=== PATIENT | male | born 1940 | race Caucasian/White ===

== ENCOUNTER → 2017-03-08 | Outpatient (CLI) | payer MEDICARE, OTHER ==
[2017-03-08 08:37] LABS: CHLORIDE,CL 107 mmol/L (98-110); SODIUM,NA 141 mmol/L (136-146)
== END ==
LOC: MW.CHRC 07:49
PROVIDERS: ATTEND Family Medicine
DX: I10 Essential (primary) hypertension (principal); E78.00 Pure hypercholesterolemia, unspecified; E11.9 Type 2 diabetes mellitus without complications; I25.10 Atherosclerotic heart disease of native coronary artery without angina pectoris
CPT/HCPCS: 36415; 80053; 80061; 82044; 83036; 99215

== ENCOUNTER 2017-10-20 17:15 | Emergency (ER) | payer MEDICARE, OTHER ==
[2017-10-20] MEDS ORDERED: Diltiazem 25 MG/5 ML SDV IVPUSH ONE (17:22)
[2017-10-20] MEDS ORDERED: Famotidine 20 MG/2 ML SDV IVPUSH ONE (17:23)
[2017-10-20] MEDS ORDERED: Sodium Chloride 0.9% 1,000 ML IV ONE ×2 (17:26→18:38)
--- NOTE | 2017-10-20 17:35 | EDM.PDOC ---
ED HPI GENERAL MEDICAL PROBLEM - General Chief Complaint: Cardiovascular Problem Stated Complaint: PT HAS DIFFICULTY BREATHING Time Seen by Provider: 10/20/17 17:17 Source of Information: Reports: Patient, EMS, Old Records History Limitations: Reports: No Limitations - History of Present Illness INITIAL COMMENTS - FREE TEXT/NARRATIVE: HISTORY AND PHYSICAL: []77-year-old male presenting with chest pain per EMS History of Present Illness: []12:00 noon patient started having difficulty with some shortness of breath with chest pain 05/30 This did not resolve he called EMS right leg below the knee amputation Hypertension Review of Systems: As per history of present illness and below otherwise all systems reviewed and negative. Past medical history: As per history of present illness and as reviewed below otherwise noncontributory. Surgical history: As per history of present illness and as reviewed below otherwise noncontributory. Social history: No reported history of drug or alcohol abuse. Family history: As per history of present illness and as reviewed below otherwise noncontributory. Physical exam: Alert and oriented male, who states his pain as a 1 out of 10. he was given one nitroglycerin sublingual by EMS. Speaking in full sentences without any shortness of breath. Patient did take all of his medications this morning including aspirin. HEENT: Atraumatic, normocehpalic, pupils reactive, negative for conjunctival pallor or scleral icterus, mucous membranes moist, throat clear, neck supple, nontender, trachea midline. Lungs: Clear to auscultation, breath sounds equal bilaterally, chest non tender. Heart: S1S2, regular, negative for clicks, rubs, or JVD. Abdomen: Soft, nondistended, nontender. Negative for masses or hepatossplenmegaly. Negative for costovertebral tenderness. Pelvis: Stable nontender. Genitourinary: Deferred. Rectal: Deferred Extremities: Atraumatic, negative for cords or calf pain. Neurovascular unremarkable. Neuro: Awake, alert, oriented. Cranial nerves II through XII unremarkable. Cerebellum unremarkable. Motor and sensory unremarkable throughout. Exam nonfocal. 20mg Cardizem IV and rate has slowed is now variable at 70's to 100s Patient remains pain free Troponin level has returned elevated at 1.16 Discussed this case with Dr. Haq physician in [facility] he has requested Lovenox to be given prior to transport and he has accepted this patient for admission to ER in [place], Discussed with the patient that his enzymes are elevated we will transfer him per air to a hospital that has cardiology available and he is agreeable to this recommended course of action. Diagnostics: [CBC CMP troponin EKG chest x-ray] Therapeutics: [1 L normal saline Cardizem 20 IV] Impression: [New-onset A. fib] Plan: []Transfer patient per air ambulance to [facility] emergency department [place], [place] All forms have been completed Definitive disposition and diagnosis as appropriate pending reevaluation and review of above. Onset: Today, Sudden Duration: Hour(s): (4-5) Location: Reports: Chest Severity: Moderate - Related Data Allergies Allergy/AdvReac Type Severity Reaction Status Date / Time Penicillins Allergy Cannot Verified 05/06/14 08:07 Remember zolpidem tartrate Allergy Cannot Verified 05/06/14 08:07 [From Riya] Remember Past Medical History Cardiovascular History: Reports: High Cholesterol, Hypertension Respiratory History: Reports: COPD Endocrine/Metabolic History: Reports: Diabetes, Type II - Past Surgical History GI Surgical History: Reports: Hernia Repair/Other Social & Family History - Family History Family Medical History: Noncontributory - Tobacco Use Smoking Status *Q: Former Smoker Used Tobacco, but Quit: Yes Month Tobacco Last Used: 12+ - Caffeine Use Caffeine Use: Reports: Coffee - Recreational Drug Use Recreational Drug Use: No ED ROS GENERAL - Review of Systems Review Of Systems: ROS reveals no pertinent complaints other than HPI. ED EXAM, GENERAL - Physical Exam Exam: See Below (See dictation) EKG INTERPRETATION Rhythm: A-Fib (New-onset) Comparison: NA - No Prior EKG Course - Vital Signs Last Recorded V/S: Last Vital Signs Temp 36.2 C 10/20/17 17:17 Pulse 149 H 10/20/17 17:17 Resp 28 H 10/20/17 17:17 BP 118/84 10/20/17 17:17 Pulse Ox 91 L 10/20/17 17:17 - Orders/Labs/Meds Orders: Active Orders 24 hr Category Date Time Status Cardiac Monitoring [RC] . DIRECTED Care 10/20/17 17:22 Active Cardiac Monitoring [RC] . DIRECTED Care 10/20/17 17:23 Active EKG Documentation Completion [RC] STAT Care 10/20/17 17:22 Active EKG Documentation Completion [RC] STAT Care 10/20/17 17:51 Active Oxygen Therapy, ED [RC] ASDIRECTED Care 10/20/17 17:22 Active Chest 1V Frontal [CR] Stat Exams 10/20/17 17:23 Taken AMYLASE [CHEM] Stat Lab 10/20/17 18:06 Results COMPREHENSIVE METABOLIC PN,CMP [CHEM] Stat Lab 10/20/17 18:06 Results LIPASE [CHEM] Stat Lab 10/20/17 18:06 Results TROPONIN I [CHEM] Stat Lab 10/20/17 18:06 Results UA W/MICROSCOPIC [URIN] Stat Lab 10/20/17 17:23 Uncollected Sodium Chloride 0.9% [Normal Saline] 1,000 ml Med 10/20/17 17:26 Active IV STAT Medication Orders Sodium Chloride (Normal Saline) 1,000 mls @ 999 mls/hr IV STAT ONE Stop: 10/20/17 18:26 Last Admin: 10/20/17 17:29 Dose: 999 mls/hr Labs: Laboratory Tests 10/20/17 10/20/17 10/20/17 Range/Units 18:06 18:06 18:06 WBC 7.70 (4.0-11.0) K/uL RBC 3.88 L (4.50-5.90) M/uL Hgb 11.8 L (13.0-17.0) g/dL Hct 35.3 L (38.0-50.0) % MCV 91.0 (80.0-98.0) fL MCH 30.4 (27.0-32.0) pg MCHC 33.4 (31.0-37.0) g/dL RDW Std Deviation 44.9 (28.0-62.0) fl RDW Coeff of Ese 14 (11.0-15.0) % Plt Count 261 (150-400) K/uL MPV 10.50 (7.40-12.00) fL Neut % (Auto) 81.4 H (48.0-80.0) % Lymph % (Auto) 12.9 L (16.0-40.0) % [place] % (Auto) 5.7 (0.0-15.0) % Eos % (Auto) 0.0 (0.0-7.0) % Baso % (Auto) 0.0 (0.0-1.5) % Neut # (Auto) 6.3 H (1.4-5.7) K/uL Lymph # (Auto) 1.0 (0.6-2.4) K/uL [place] # (Auto) 0.4 (0.0-0.8) K/uL Eos # (Auto) 0.0 (0.0-0.7) K/uL Baso # (Auto) 0.0 (0.0-0.1) K/uL Nucleated RBC % 0.0 /100WBC Nucleated RBCs # 0 K/uL INR 1.16 H (0.86-1.11) Troponin I 1.67 H* (0.0-0.29) NG/ML Meds: Medications Generic Name Dose Route Start Last Admin Trade Name Freq PRN Reason Stop Dose Admin Sodium Chloride 1,000 mls @ 999 mls/hr 10/20/17 17:26 10/20/17 17:29 Normal Saline IV 10/20/17 18:26 999 mls/hr STAT ONE Administration Discontinued Medications Generic Name Dose Route Start Last Admin Trade Name Freq PRN Reason Stop Dose Admin Diltiazem HCl 20 mg 10/20/17 17:22 10/20/17 17:28 Diltiazem IVPUSH 10/20/17 17:23 20 mg ONETIME ONE Administration Famotidine 20 mg 10/20/17 17:23 10/20/17 17:42 Pepcid IVPUSH 10/20/17 17:24 20 mg ONETIME ONE Administration Departure - Departure Time of Disposition: 18:44 Disposition: DC/Tfer to Acute Hospital 02 Reason for Transfer *Q: Primary PCI Indicated Condition: Good Clinical Impression: New onset a-fib, Elevated troponin Forms: ED Department Discharge - My Orders Last 24 Hours: My Active Orders 10/20/17 17:22 Cardiac Monitoring [RC] . DIRECTED EKG Documentation Completion [RC] STAT Oxygen Therapy, ED [RC] ASDIRECTED 10/20/17 17:23 Cardiac Monitoring [RC] . DIRECTED Chest 1V Frontal [CR] Stat UA W/MICROSCOPIC [URIN] Stat 10/20/17 17:26 Sodium Chloride 0.9% [Normal Saline] 1,000 ml IV STAT 10/20/17 17:51 EKG Documentation Completion [RC] STAT 10/20/17 18:06 AMYLASE [CHEM] Stat COMPREHENSIVE METABOLIC PN,CMP [CHEM] Stat LIPASE [CHEM] Stat TROPONIN I [CHEM] Stat - Assessment/Plan Last 24 Hours: My Active Orders 10/20/17 17:22 Cardiac Monitoring [RC] . DIRECTED EKG Documentation Completion [RC] STAT Oxygen Therapy, ED [RC] ASDIRECTED 10/20/17 17:23 Cardiac Monitoring [RC] . DIRECTED Chest 1V Frontal [CR] Stat UA W/MICROSCOPIC [URIN] Stat 10/20/17 17:26 Sodium Chloride 0.9% [Normal Saline] 1,000 ml IV STAT 10/20/17 17:51 EKG Documentation Completion [RC] STAT 10/20/17 18:06 AMYLASE [CHEM] Stat COMPREHENSIVE METABOLIC PN,CMP [CHEM] Stat LIPASE [CHEM] Stat TROPONIN I [CHEM] Stat
[2017-10-20 18:33] LABS: CHLORIDE,CL 110 mmol/L (98-110); SODIUM,NA 137 mmol/L (136-146)
[2017-10-20] MEDS ORDERED: Enoxaparin 100 MG/1 ML Syringe SUBCUT ONE (18:40)
--- NOTE | 2017-10-21 15:41 | CR ---
EXAM DATE: 10/20/17 PATIENT'S AGE: 77 Patient: [facility] Facility: [place], [place] Site . Site : [id number] Study: XRay Chest [id number] 6:07:38 PM Ordering Physician: Doctor Morocho Final Report: Indication: Chest pain Technique: Chest 1 view Comparison: None Findings/Impression: Cardiovascular and mediastinum: Mild cardiomegaly. Lungs and pleural space: Diffusely increased interstitial markings with apparent ill-defined interstitial nodularity in the lower lungs, which could represent interstitial pulmonary edema or an infectious process, although neoplasm/metastatic disease is not excluded. Correlate with CT. An ill-defined retrocardiac opacity could represent atelectasis or a focal infiltrate. Slight blunting of the costophrenic angles. Bones and soft tissues: No significant abnormalities. Dictated by Tejinder Pepper MD @ 10/20/2017 6:29:23 PM Dictated by: Tejinder Pepper MD @ 10/20/2017 18:31:41 (Electronic Signature) Report Signed by Proxy. [facility]
== END 2017-10-20 19:01 ==
LOC: MW.ED 17:15
DX: I48.91 Unspecified atrial fibrillation (principal); R79.89 Other specified abnormal findings of blood chemistry; I10 Essential (primary) hypertension; E78.00 Pure hypercholesterolemia, unspecified; E11.9 Type 2 diabetes mellitus without complications; Z87.891 Personal history of nicotine dependence; Z88.0 Allergy status to penicillin; Z88.8 Allergy status to other drugs, medicaments and biological substances
CPT/HCPCS: 36415; 71010; 80053; 82150; 83690; 84484; 85025; 85610; 93005; 96361; 96372; 96374; 96375; 99285; J1650; J3490; J7040; 99283

== ENCOUNTER 2019-12-14 08:37 | Emergency (ER) | payer MEDICARE, OTHER ==
[2019-12-14] MEDS ORDERED: LORazepam 2 MG/ML SDV IVPUSH ONE (08:42)
[2019-12-14] MEDS ORDERED: Magnesium Sulfate/Water 2 GM in Premix Bag 1 BAG IV ONE (08:43)
[2019-12-14 09:29] LABS: CARBON DIOXIDE,CO2 14.6 mmol/L (21.0-32.0); POTASSIUM,K 5.8 mmol/L (3.5-5.1)
--- NOTE | 2019-12-14 09:32 | CR ---
Chest: Portable view of the chest was obtained. Comparison: Prior chest x-ray of 10/20/17. Heart size appears at the upper limits of normal. Lungs show no acute parenchymal change. Old healed left clavicle deformity is noted. No acute osseous finding is seen. Impression: 1. Findings as noted above. 2. Nothing acute is appreciated. Diagnostic code #2 This report was dictated in [place] Standard Time
--- NOTE | 2019-12-14 09:51 | US ---
Left lower extremity deep venous ultrasound: Duplex and color Doppler evaluation was obtained of the left common femoral, superficial femoral, popliteal, posterior tibial and peroneal veins. Comparison: No prior venous imaging. Findings: Normal Doppler blood flow and compression is seen. Impression: 1. No evidence of deep venous thrombosis within the left lower extremity. Diagnostic code #1 This report was dictated in [place] Standard Time
--- NOTE | 2019-12-14 11:06 | EDM.PDOC ---
ED HPI GENERAL MEDICAL PROBLEM - General Chief Complaint: Lower Extremity Injury/Pain Stated Complaint: LEG PAIN Time Seen by Provider: 12/14/19 08:39 - History of Present Illness INITIAL COMMENTS - FREE TEXT/NARRATIVE: Severe left leg cramping since last night history of claudication poor circulation normally resolve spontaneously this time did not after 1 hour patient called EMS because of pain and severe spasm that is intermittent. Denies any numbness or weakness. Patient denies any chest pain or any respiratory distress. History of congestive heart failure COPD and renal insufficiency as well as diabetes. Patient admits to poor baseline circulation to left leg and history of claudication to left leg. He normally takes medication for spasm however today it did not work.. Denies loss of strength or loss of sensation Left lower leg Pain Score (Numeric/FACES): 4 - Related Data Allergies Allergy/AdvReac Type Severity Reaction Status Date / Time Penicillins Allergy Cannot Verified 12/14/19 09:02 Remember zolpidem tartrate Allergy Cannot Verified 12/14/19 09:02 [From Riya] Remember Home Meds: Home Meds Acetaminophen 325 - 650 mg PO Q4HR PRN 07/27/18 [History] Albuterol Sulfate [Proair Hfa] 1 - 2 puff IH Q4HR PRN 07/27/18 [History] Aspirin 81 mg PO DAILY 07/27/18 [History] Capsaicin [Capzasin-P 0.0375% Crm] 42.5 gm .XX DAILY 07/27/18 [History] Clopidogrel [Plavix] 75 mg PO DAILY 07/27/18 [History] Fish Oil/DHA/EPA [Fish Oil 1,200 MG] 1 tab PO DAILY 07/27/18 [History] Fluticasone/Salmeterol [Advair 250-50 Diskus] 1 each IH DAILY 07/27/18 [History] Insulin Aspart Protam & Aspart [Novolog Mix 70-30 Flexpen Syrn] 35 units SQ BID 07/27/18 [History] Lisinopril/Hydrochlorothiazide [Lisinopril-Hctz 20-12.5 mg Tab] 1 tab PO DAILY 07/27/18 [History] Melatonin 10 mg PO BEDTIME 07/27/18 [History] Metoprolol Tartrate 25 mg PO BID 07/27/18 [History] Nitroglycerin [Nitroglycerin Patch 0.2 MG/Hr] 5 mg TRDERM DAILY 07/27/18 [ History] Nitroglycerin [Nitrostat] 0.4 mg SL .EVERY 5 MINUTES PRN MDD 3 tablets (1.2 mg) 07/27/18 [History] Pantoprazole Sodium 40 mg PO DAILY 07/27/18 [History] Sertraline HCl 50 mg PO DAILY 07/27/18 [History] Vitamin B Complex [B Complex] 1 each PO DAILY 07/27/18 [History] Warfarin [Coumadin] 5 mg PO SUMOWEFRSA 07/27/18 [History] Warfarin [Coumadin] 7.5 mg PO TUTH 07/27/18 [History] atorvaSTATin [Lipitor] 40 mg PO BEDTIME 07/27/18 [History] diphenhydrAMINE [Benadryl] 25 - 50 mg PO BEDTIME 07/27/18 [History] metFORMIN HCl [Fortamet] 1,000 mg PO BID 07/27/18 [History] Metoprolol Tartrate [Lopressor] 25 mg PO BIDMEALS 30 Days #60 tablet 07/28/18 [ Rx] Sertraline [Zoloft] 50 mg PO DAILY 30 Days #45 tablet 07/28/18 [Rx] Past Medical History HEENT History: Reports: Cataract, Hard of Hearing Cardiovascular History: Reports: High Cholesterol, Hypertension Respiratory History: Reports: COPD Gastrointestinal History: Reports: None Genitourinary History: Reports: None Musculoskeletal History: Reports: Amputation 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 Neurological History: Reports: None Psychiatric History: Reports: Anxiety Endocrine/Metabolic History: Reports: Diabetes, Type II Hematologic History: Reports: None Immunologic History: Reports: None Oncologic (Cancer) History: Reports: None Dermatologic History: Reports: None - Infectious Disease History Infectious Disease History: Reports: Mumps - Past Surgical History Head Surgeries/Procedures: Reports: None HEENT Surgical History: Reports: Cataract Surgery Cardiovascular Surgical History: Reports: None Respiratory Surgical History: Reports: None GI Surgical History: Reports: Hernia Repair/Other Male Surgical History: Reports: None Endocrine Surgical History: Reports: None Neurological Surgical History: Reports: None Musculoskeletal Surgical History: Reports: Amputation Oncologic Surgical History: Reports: None Dermatological Surgical History: Reports: None Social & Family History - Family History Family Medical History: Noncontributory - Tobacco Use Smoking Status *Q: Never Smoker Second Hand Smoke Exposure: No - Caffeine Use Caffeine Use: Reports: None Caffeine Use Comment: Diet Pepsi - Recreational Drug Use Recreational Drug Use: No Review of Systems - Review of Systems Review Of Systems: See Below Constitutional: Reports: No Symptoms Eyes: Reports: No Symptoms Ears: Reports: No Symptoms Respiratory: Reports: No Symptoms Cardiovascular: Reports: No Symptoms GI/Abdominal: Reports: No Symptoms Musculoskeletal: Reports: Leg Pain Neurological: Reports: No Symptoms Psychiatric: Reports: No Symptoms ED EXAM, GENERAL - Physical Exam Exam: See Below Exam Limited By: No Limitations General Appearance: Moderate Distress Eye Exam: Bilateral Eye: Normal Inspection, PERRL Ears: Normal External Exam, Normal Canal, Hearing Grossly Normal, Normal TMs Nose: Normal Inspection, Normal Mucosa, No Blood Throat/Mouth: Normal Inspection, Normal Lips, Normal Teeth, Normal Gums, Normal Oropharynx, Normal Voice, No Airway Compromise Head: Atraumatic, Normocephalic Neck: Normal Inspection, Supple, Non-Tender, Full Range of Motion Respiratory/Chest: No Respiratory Distress, Lungs Clear, Normal Breath Sounds, No Accessory Muscle Use, Chest Non-Tender Cardiovascular: Normal Peripheral Pulses, Regular Rate, Rhythm, No Edema, No Gallop, No JVD, No Murmur, No Rub GI/Abdominal: Normal Bowel Sounds, Soft, Non-Tender, No Organomegaly, No Distention, No Abnormal Bruit, No Mass Back Exam: Normal Inspection, Full Range of Motion, NT Extremities: Normal Inspection, Normal Range of Motion, Non-Tender, No Pedal Edema, Normal Capillary Refill, Leg Pain, Other (Right-sided above-knee amputation, left leg positive pedal pulse no cyanosis. Average capillary refill sensory intact negative Homans sign). No: Pedal Edema, Alejandor's Sign Neurological: Alert, Oriented, CN II-XII Intact, Normal Cognition, Normal Gait, Normal Reflexes, No Motor/Sensory Deficits Skin Exam: Warm, Dry, Intact, Normal Color, No Rash Course - Vital Signs Last Recorded V/S: Last Vital Signs Temp 96.7 F 12/14/19 09:02 Pulse 116 H 12/14/19 09:02 Resp 18 12/14/19 09:02 BP 149/85 H 12/14/19 09:02 Pulse Ox 97 12/14/19 09:02 - Orders/Labs/Meds Labs: Laboratory Tests 12/14/19 12/14/19 12/14/19 Range/Units 08:41 08:41 08:41 WBC 15.44 H (4.0-11.0) K/uL RBC 3.79 L (4.50-5.90) M/uL Hgb 11.1 L (13.0-17.0) g/dL Hct 33.7 L (38.0-50.0) % MCV 88.9 (80.0-98.0) fL MCH 29.3 (27.0-32.0) pg MCHC 32.9 (31.0-37.0) g/dL RDW Std Deviation 55.0 (28.0-62.0) fl RDW Coeff of Ese 17 H (11.0-15.0) % Plt Count 308 (150-400) K/uL MPV 9.70 (7.40-12.00) fL Neut % (Auto) 82.1 H (48.0-80.0) % Lymph % (Auto) 8.6 L (16.0-40.0) % [place] % (Auto) 8.2 (0.0-15.0) % Eos % (Auto) 0.8 (0.0-7.0) % Baso % (Auto) 0.3 (0.0-1.5) % Neut # (Auto) 12.7 H (1.4-5.7) K/uL Lymph # (Auto) 1.3 (0.6-2.4) K/uL [place] # (Auto) 1.3 H (0.0-0.8) K/uL Eos # (Auto) 0.1 (0.0-0.7) K/uL Baso # (Auto) 0.0 (0.0-0.1) K/uL Nucleated RBC % 0.0 /100WBC Nucleated RBCs # 0 K/uL INR 3.87 Sodium 135 L (136-148) mmol/L Potassium 5.8 H (3.5-5.1) mmol/L Chloride 101 (98-107) mmol/L Carbon Dioxide 14.6 L (21.0-32.0) mmol/L BUN 31 H (7.0-18.0) mg/dL Creatinine 1.7 H (0.8-1.3) mg/dL Est Cr Clr Drug Dosing 36.98 mL/min Estimated GFR (MDRD) 39.2 ml/min Glucose 211 H (74-106) mg/dL Calcium 9.4 (8.5-10.1) mg/dL Total Bilirubin 1.5 H (0.2-1.0) mg/dL AST 74 H (15-37) IU/L ALT 75 H (14-63) IU/L Alkaline Phosphatase 96 (46-116) U/L B-Natriuretic Peptide (<100) PG/ML Total Protein 7.7 (6.4-8.2) g/dL Albumin 3.3 L (3.4-5.0) g/dL Globulin 4.4 H (2.6-4.0) g/dL Albumin/Globulin Ratio 0.8 L (0.9-1.6) 12/14/19 Range/Units 08:41 WBC (4.0-11.0) K/uL RBC (4.50-5.90) M/uL Hgb (13.0-17.0) g/dL Hct (38.0-50.0) % MCV (80.0-98.0) fL MCH (27.0-32.0) pg MCHC (31.0-37.0) g/dL RDW Std Deviation (28.0-62.0) fl RDW Coeff of Ese (11.0-15.0) % Plt Count (150-400) K/uL MPV (7.40-12.00) fL Neut % (Auto) (48.0-80.0) % Lymph % (Auto) (16.0-40.0) % [place] % (Auto) (0.0-15.0) % Eos % (Auto) (0.0-7.0) % Baso % (Auto) (0.0-1.5) % Neut # (Auto) (1.4-5.7) K/uL Lymph # (Auto) (0.6-2.4) K/uL [place] # (Auto) (0.0-0.8) K/uL Eos # (Auto) (0.0-0.7) K/uL Baso # (Auto) (0.0-0.1) K/uL Nucleated RBC % /100WBC Nucleated RBCs # K/uL INR Sodium (136-148) mmol/L Potassium (3.5-5.1) mmol/L Chloride (98-107) mmol/L Carbon Dioxide (21.0-32.0) mmol/L BUN (7.0-18.0) mg/dL Creatinine (0.8-1.3) mg/dL Est Cr Clr Drug Dosing mL/min Estimated GFR (MDRD) ml/min Glucose (74-106) mg/dL Calcium (8.5-10.1) mg/dL Total Bilirubin (0.2-1.0) mg/dL AST (15-37) IU/L ALT (14-63) IU/L Alkaline Phosphatase (46-116) U/L B-Natriuretic Peptide 502 H (<100) PG/ML Total Protein (6.4-8.2) g/dL Albumin (3.4-5.0) g/dL Globulin (2.6-4.0) g/dL Albumin/Globulin Ratio (0.9-1.6) Meds: Medications Discontinued Medications Generic Name Dose Route Start Last Admin Trade Name Freq PRN Reason Stop Dose Admin Magnesium Sulfate 2 gm/ Premix 50 mls @ 50 mls/hr 12/14/19 08:43 12/14/19 09: 06 IV 12/14/19 09:42 50 mls/hr ONETIME ONE Administration Lorazepam 0.5 mg 12/14/19 08:42 12/14/19 08:50 Ativan IVPUSH 12/14/19 08:43 0.5 mg ONETIME ONE Administration Departure - Departure Time of Disposition: 11:05 Disposition: Home, Self-Care 01 Condition: Good Clinical Impression: Leg muscle spasm Qualifiers: Laterality: left Qualified Code(s): M62.838 - Other muscle spasm - Discharge Information Instructions: Muscle Cramps and Spasms, [id number] Referrals: Fernando Brar MD [Primary Care Provider] - Sepsis Event Note - Evaluation Sepsis Screening Result: No Definite Risk - Focused Exam Vital Signs: Vital Signs Temp Pulse Resp BP Pulse Ox 12/14/19 09:02 96.7 F 116 H 18 149/85 H 97 Date Exam was Performed: 12/14/19 Time Exam was Performed: 11:01
== END 2019-12-14 11:48 | disposition home or self-care (01) ==
LOC: MW.ED 08:37
DX: M62.838 Other muscle spasm (principal); I10 Essential (primary) hypertension; E11.9 Type 2 diabetes mellitus without complications; F41.9 Anxiety disorder, unspecified; J44.9 Chronic obstructive pulmonary disease, unspecified; Z88.0 Allergy status to penicillin; Z88.8 Allergy status to other drugs, medicaments and biological substances; Z79.82 Long term (current) use of aspirin; Z79.4 Long term (current) use of insulin; Z79.01 Long term (current) use of anticoagulants; Z79.02 Long term (current) use of antithrombotics/antiplatelets; Z79.899 Other long term (current) drug therapy
CPT/HCPCS: 36415; 71045; 80053; 83880; 85025; 85610; 93971; 96365; 96375; 99284; J2060; J3475; 99283

== ENCOUNTER 2019-12-18 09:38 | Emergency (ER) | payer MEDICARE, OTHER ==
[2019-12-18] MEDS ORDERED: Albuterol/Ipratropium 3.0-0.5 MG/3 ML Neb Soln ONE (09:40)
[2019-12-18] MEDS ORDERED: Albuterol 0.083% 2.5 MG/3 ML Neb Soln NEB ONE (09:49)
[2019-12-18] MEDS ORDERED: methylPREDNISolone Sodium Succinate 125 MG/2 ML SDV IVPUSH ONE (09:49)
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
[2019-12-18] MEDS ORDERED: Levofloxacin/Dextrose 5%-Water 500 MG in Premix Bag 1 BAG IV ONE (09:59)
--- NOTE | 2019-12-18 10:02 | PCM.SN ---
- Free Text/Narrative Note: Called to ER for code blue. On arrival to ED CPR is in progress; agonal respirations are noted. BVM respirations until patient moved from EMS cart to ED cart. Intubation performed without medication; DL with mckenzie 2, grade I view, 8.0 cuffed ETT placed to 25 cm at the lips. +BBS, + EtCO2. Tube secured via RT. CXR and ABG ordered and pending. 18g IV started to Rt EJ due to lack of IV access. 5mL of blood was also obtained for lab studies.
--- NOTE | 2019-12-18 10:15 | CR ---
Chest: Portable view of the chest was obtained. Comparison: Previous chest x-ray of 12/14/19. Monitoring opacity is overlying the right chest obscuring a portion of the right lung. Heart is enlarged. Pulmonary vessels are felt to be mildly congested. Endotracheal tube is seen. Kofi is difficult to see but endotracheal tube appears to lie at the kofi and position should be withdrawn by about 3 cm for more optimal positioning. Tip of nasogastric tube is within the stomach. Degenerative endplate spurring and disc space narrowing is seen throughout the spine. Mild scoliosis is noted. Impression: 1. Findings suspicious for CHF. 2. Endotracheal tube difficult to see but most likely is at the kofi. Endotracheal tube should be withdrawn by about 3 cm for more optimal positioning. 3. Tip of nasogastric tube within the stomach. Diagnostic code #3 This report was dictated in [place] Standard Time
[2019-12-18 10:33] LABS: BLOOD UREA NITROGEN,BUN 29 mg/dL (7.0-18.0); CARBON DIOXIDE,CO2 5.6 mmol/L (21.0-32.0); CHLORIDE,CL 100 mmol/L (98-107); GLUCOSE RANDOM 478 mg/dL (74-106); POTASSIUM,K 6.1 mmol/L (3.5-5.1); SODIUM,NA 135 mmol/L (136-148)
[2019-12-18] MEDS: Levofloxacin/Dextrose 5%-Water 750 MG in Premix Bag 1 BAG IV ONE ×2 (13:52→14:01)
[2019-12-18] MEDS: methylPREDNISolone Sodium Succinate 125 MG/2 ML SDV ONE ×2 (13:52→14:01)
[2019-12-18] MEDS ORDERED: Amiodarone 150 MG in Dextrose 5% in Water 100 ML IV ONE ×4 (14:04→14:07)
[2019-12-18] MEDS ORDERED: EPINEPHrine 1 MG/1 ML Amp IVPUSH ONE ×3 (14:04→14:06)
[2019-12-18] MEDS ORDERED: Rocuronium 50 MG/5 ML Vial IVPUSH ONE (14:04)
[2019-12-18] MEDS ORDERED: Midazolam 1 MG/ML 2 ML SDV IVPUSH ONE (14:05)
[2019-12-18] MEDS ORDERED: Amiodarone 150 MG/3 ML SDV ONE (14:11)
[2019-12-18] MEDS ORDERED: Sodium Chloride 0.9% 1,000 ML IV SCH ×2 (14:15)
[2019-12-18] MEDS ORDERED: propofoL 100 ML IV SCH (14:15)
[2019-12-18] MEDS ORDERED: Amiodarone 150 MG/3 ML SDV IVPUSH ONE (17:18)
== END 2019-12-18 11:45 | disposition expired ==
LOC: MW.ED 09:38
DX: R09.2 Respiratory arrest (principal); R93.1 Abnormal findings on diagnostic imaging of heart and coronary circulation; J44.9 Chronic obstructive pulmonary disease, unspecified; I10 Essential (primary) hypertension; E78.00 Pure hypercholesterolemia, unspecified; F41.9 Anxiety disorder, unspecified; E11.9 Type 2 diabetes mellitus without complications; Z79.4 Long term (current) use of insulin; Z79.01 Long term (current) use of anticoagulants; Z79.02 Long term (current) use of antithrombotics/antiplatelets; Z79.82 Long term (current) use of aspirin; Z79.899 Other long term (current) drug therapy; Z88.0 Allergy status to penicillin; Z88.8 Allergy status to other drugs, medicaments and biological substances
CPT/HCPCS: 31500; 36415; 36600; 71045; 80053; 81001; 82550; 82803; 84484; 85025; 85610; 87040; 92950; 93005; 94002; 94640; 96374; 96375; 99285; J0171; J0282; J1956; J2250; J2704; J2930; J3370; J7030; J7050; 43752; 51702; 96365; 99283; 99291